=== PATIENT | female | born 1965 | race Caucasian/White ===

== ENCOUNTER 2019-04-17 06:04 | Day surgery (SDC) | payer OTHER ==
[~2019-04-17] VITALS: Ht 157.5 cm; Wt 57.2 kg
[2019-04-17] MEDS ORDERED: fentaNYL 0.05 MG/ML VIAL ONE (08:04)
[2019-04-17] MEDS ORDERED: LIDOCAINE 2% 100 MG/5 ML UJET TP ONE (08:05)
[2019-04-17] MEDS ORDERED: MIDAZOLAM 2 MG/2 ML VIAL ONE (08:38)
[2019-04-17] MEDS ORDERED: MIDAZOLAM 2 MG/2 ML VIAL IVP ONE (09:00)
[2019-04-17] MEDS ORDERED: fentaNYL 0.05 MG/ML VIAL IVP ONE (09:00)
== END 2019-04-17 09:50 | disposition home or self-care (01) ==
LOC: MDS 06:04 → MMU 06:17 → MDS 09:50
PROVIDERS: ATTEND Internal Medicine Gastroenterology
DX: Z12.11 Encounter for screening for malignant neoplasm of colon (principal); K57.30 Diverticulosis of large intestine without perforation or abscess without bleeding; Z90.49 Acquired absence of other specified parts of digestive tract
CPT/HCPCS: 45378; 81025; J2250; J3010